=== PATIENT | male | born 1955 ===

== ENCOUNTER 2017-05-17 10:39 | Emergency (ER) | payer OTHER | END 2017-05-17 12:30 | disposition home or self-care (01) | LOC: ERS 10:39 | DX: J11.1 Influenza due to unidentified influenza virus with other respiratory manifestations (principal); E11.9 Type 2 diabetes mellitus without complications; I10 Essential (primary) hypertension; F31.9 Bipolar disorder, unspecified; Z79.4 Long term (current) use of insulin | CPT/HCPCS: 99283 ==